=== PATIENT | female | born 1980 | race Caucasian/White ===

== ENCOUNTER 2016-10-21 10:02 | Inpatient (IN) | payer OTHER ==
[2016-10-20 11:38] VITALS: BMI 27.1
[~2016-10-21] VITALS: Ht 154.9 cm; Wt 63.4 kg
[2016-10-21] VITALS (21 sets, daily range): BP systolic 104–140; BP diastolic 56–82; PULSE 84–100; RESP 13–20; Ht 154.9 cm; Wt 63.4 kg
[~2016-10-21 10:02] MED LIST: CEFAZOLIN 1 GM/50 ML (PMX) 50 ML IVPB SCH; [UNRECOGNIZED DRUG - REMARK]
[2016-10-21] MEDS ORDERED: MIDAZOLAM 1 MG/ML 2 ML INJ ONE (10:23)
[2016-10-21] MEDS ORDERED: PROPOFOL 20 ML ONE (10:23)
[2016-10-21] MEDS ORDERED: FENTAnyl 50 MCG/ML VIAL ONE (10:23)
[2016-10-21] MEDS ORDERED: SUCCINYLCHOLINE CHLORIDE 100 MG/5 ML SYG IV ONE (10:23)
[2016-10-21] MEDS ORDERED: GABA300C16 PO (11:40)
[2016-10-21] MEDS ORDERED: DICL75TA2 PO (11:40)
[2016-10-21] MEDS ORDERED: TOPI25CA PO (11:40)
[2016-10-21] MEDS ORDERED: METF500T4 PO (11:40)
[2016-10-21] MEDS ORDERED: CYCL-319 PO (11:40)
[2016-10-21] MEDS ORDERED: AMIT10TA6 PO (11:40)
[2016-10-21] MEDS ORDERED: FAMOTIDINE 20 MG INJ ONE (12:25)
[2016-10-21] MEDS ORDERED: METOCLOPRAMIDE 10 MG INJ ONE (12:25)
[2016-10-21] MEDS ORDERED: GELATIN SIZE 100 SPONGE ONE (12:26)
[2016-10-21] MEDS ORDERED: ISOSULFAN BLUE 1% 5 ML INJ SC ONE (12:26)
[2016-10-21] MEDS ORDERED: POLYMYXIN/BACITRACIN 1L IRRIG ONE (12:27)
[2016-10-21] MEDS ORDERED: BUPIVACAINE 0.5%/EPI (SDV) 30 ML INJ ONE (12:27)
[2016-10-21] MEDS ORDERED: THROMBIN 5000 UNIT VIAL ONE (12:27)
[2016-10-21] MEDS ORDERED: CITRIC ACID/NA CITRATE 30 ML CUP ONE (12:28)
--- NOTE | 2016-10-21 12:37 | HPN ---
Date/Time of Note Date/Time of Note DATE: 10/21/16 TIME: 12:37 Interval H&P Admission Note Pt. seen H&P reviewed: No system changes CAROLANN VILLANUEVA MD Oct 21, 2016 12:37
[2016-10-21] MEDS ORDERED: ROCURONIUM 50 MG INJ ONE (13:07)
[2016-10-21] MEDS ORDERED: CEFAZOLIN 1 GM INJ ONE (13:07)
[2016-10-21] MEDS ORDERED: ONDANSETRON 4 MG INJ ONE ×2 (13:14→15:05)
[2016-10-21] MEDS ORDERED: PHENYLephrine (100 MCG/ML) 5ML SYG ONE (13:32)
[2016-10-21] MEDS ORDERED: GLYCOPYRROLATE 1 MG INJ ONE (14:35)
[2016-10-21] MEDS ORDERED: NEOSTIGMINE 3 MG/3 ML SYRINGE ONE (14:35)
[2016-10-21] MEDS ORDERED: MEPERIDINE 25 MG INJ IV PRN (15:00)
[2016-10-21] MEDS ORDERED: HYDROmorphONE (0.2 MG/ML) 10ML SYG IV PRN ×2 (15:00)
[2016-10-21] MEDS ORDERED: ONDANSETRON 4 MG INJ IV PRN (15:00)
[2016-10-21] MEDS ORDERED: DIPHENHYDRAMINE 50 MG INJ ONE (15:10)
[2016-10-21] MEDS ORDERED: PROCHLORPERAZINE 10 MG INJ ONE (15:14)
[2016-10-21] MEDS ORDERED: HYDROCODONE/APAP (10/325) TAB GTB PRN (15:30)
[2016-10-21] MEDS ORDERED: HYDROCODONE/APAP (10/325) TAB PO PRN ×3 (15:30)
[2016-10-21] MEDS ORDERED: morphine 2 MG INJ IV PRN ×2 (15:30)
--- NOTE | 2016-10-21 15:41 | RADRPT ---
PROCEDURE: Intraoperative imaging of the cervical spine with fluoroscopy. CLINICAL INDICATION: Neck pain. Intraoperative. TECHNIQUE: 8 images of the cervical spine were obtained in the operating room with an image intens ifier. No radiologist was in attendance. 16.3 seconds of fluoroscopy time was used. COMPARISON: No prior study is available for comparison. FINDINGS: Images demonstrate anterior fusion at C5-6. IMPRESSION: 1. Intraoperative imaging of the cervical spine. RPTAT: QQ .Jaren Han MD, MD Date Time Electronically viewed and signed by .Jaren Han MD, MD on 10/21/2016 15:41 .R/
[2016-10-21] MEDS ORDERED: PROCHLORPERAZINE 10 MG INJ IV PRN (16:00)
[2016-10-21] MEDS: DEXTROSE 5%-LR 1,000 ML IV SCH (17:01)
--- NOTE | 2016-10-21 17:10 | QN ---
Documentation Comment [id number] ROSIE SEWELL MD Oct 21, 2016 17:10
[2016-10-21] MEDS ORDERED: GLUCOSE GEL 15 GRAM TUBE PO PRN ×2 (17:30)
[2016-10-21] MEDS ORDERED: GLUCOSE GEL 15 GRAM TUBE BUCCAL PRN (17:30)
[2016-10-21] MEDS ORDERED: GLUCAGON 1 MG INJ IM PRN (17:30)
[2016-10-21] MEDS ORDERED: DEXTROSE 50% 50 ML SYRINGE IV PRN ×2 (17:30)
--- NOTE | 2016-10-21 17:47 | HP ---
DATE OF ADMISSION: 10/21/2016 HISTORY OF PRESENT ILLNESS: The patient has a known history of diabetes, hypertension is seen post- surgery. Patient has a history of C5 and C6 diskectomy and fusion. The patient has a neck collar a t the time of the dictation. Denies any numbness, weakness, tingling of both upper and lower extrem ities. Denies any chest pain. PAST MEDICAL HISTORY: Positive for depression, diabetes and as mentioned above. ALLERGY HISTORY: NEGATIVE. FAMILY HISTORY: Negative. SOCIAL HISTORY: Noncontributory. MEDICATION HISTORY: Listed as, 1. Metformin. 2. Celexa. 3. Vitamin D2 capsule. REVIEW OF SYSTEMS: Limited since the patient has a neck collar and postop. Denies any numbness, ti ngling, cough. Denies any nausea, vomiting. PHYSICAL EXAMINATION: GENERAL: The patient is awake, alert, slow, a little sleepy. VITAL SIGNS: Pulse 84, blood pressure 117/74. HEENT: Head is atraumatic, normocephalic. Pupils equal, reactive to light. NECK: The patient has a neck collar noted. LUNGS: Clear. CARDIOVASCULAR: S1, S2 normal. ABDOMEN: Soft, nontender. Bowel sounds present. No palpable mass or hepatosplenomegaly. No guard ing, rebound tenderness. EXTREMITIES: There is no cyanosis, clubbing, or edema. CENTRAL NERVOUS SYSTEM: The patient is awake, alert, moving both upper and lower extremities. LABORATORY DATA: Not available. IMPRESSION: 1. Status post C5-C6 diskectomy and fusion. 2. History of diabetes mellitus. 3. Incomplete database. PLAN: To continue sliding scale, gentle IV fluids, laboratory data, SCD to the legs. The patient w ill have pain medications, also the patient will have incentive spirometry. Orders were done. Dictated By: ROSIE SEWELL MD BS/NTS Conf#: [id number] DID#: [id number]
[2016-10-21] MEDS: INSULIN ASPART [NOVOLOG] 3 ML PEN SC SCH ×2 (17:55→22:18)
[2016-10-21] MEDS ORDERED: CEFAZOLIN 1 GM/50 ML (PMX) 50 ML IVPB SCH (22:00)
[2016-10-21] MEDS: CEFAZOLIN 1 GM/50 ML (PMX) 50 ML IVPB SCH (22:06)
[2016-10-22] MEDS ORDERED: ACCUCHECK XX SCH (02:00)
[2016-10-22] MEDS: DEXTROSE 5%-LR 1,000 ML IV SCH ×3 (02:37→13:44)
[2016-10-22 05:38] LABS: BASOPHILS % 0.2 % (0.0-2.0); EOSINOPHILS % 0.1 % (0.0-7.0); HEMOGLOBIN 11.6 g/dl (12.0-16.0); LYMPHOCYTES # 2.2 10^3/ul (0.8-2.9); LYMPHOCYTES % 22.9 % (15.0-51.0); MEAN CORPUSCULAR HEMOGLOBIN 28.8 pg (29.0-33.0); MEAN CORPUSCULAR HGB CONC 34.2 g/dl (32.0-37.0); MEAN CORPUSCULAR VOLUME 84.2 fl (82.0-101.0); MEAN PLATELET VOLUME 8.9 fl (7.4-10.4); MONOCYTE # 0.4 10^3/ul (0.3-0.9); MONOCYTES % 4.5 % (0.0-11.0); NEUTROPHIL # 6.8 10^3/ul (1.6-7.5); NEUTROPHILS % 72.3 % (39.0-77.0); PLATELET COUNT 210 10^3/UL (140-440); RED BLOOD COUNT 4.03 10^6/ul (4.20-5.40); RED CELL DISTRIBUTION WIDTH 14.3 % (11.5-14.5); UNCORRECTED WBC 9.5 10^3/ul (4.8-10.8); WHITE BLOOD COUNT 9.5 10^3/ul (4.8-10.8)
[2016-10-22 05:41] VITALS: BP 124/73; PULSE 85; RESP 18
[2016-10-22] MEDS: CEFAZOLIN 1 GM/50 ML (PMX) 50 ML IVPB SCH (06:06)
[2016-10-22 06:07] LABS: CONDITION 1
[2016-10-22 06:13] LABS: ALBUMIN 3.9 g/dl (3.3-4.9)
[2016-10-22 06:14] LABS: POTASSIUM 3.8 mmol/L (3.5-5.1)
[2016-10-22 06:16] LABS: ALBUMIN/GLOBULIN RATIO 1.18; BILIRUBIN,INDIRECT 0.3 mg/dl (0-1.1); BILIRUBIN,TOTAL 0.3 mg/dl (0.2-1.3); CREATININE 0.38 mg/dl (0.44-1.00); TOTAL PROTEIN 7.2 g/dl (6.1-8.1)
[2016-10-22 06:17] LABS: CALCIUM 8.9 mg/dl (8.4-10.2)
[2016-10-22 07:15] VITALS: BP 124/71; RESP 18
[2016-10-22] MEDS: INSULIN ASPART [NOVOLOG] 3 ML PEN SC SCH ×2 (07:50→11:40)
--- NOTE | 2016-10-22 08:14 | OPR ---
DATE OF OPERATION: SURGEON: Carolann Lucero MD [employer]: SEVERINO Erwin ANESTHESIA: General. PREOPERATIVE DIAGNOSIS: C5-C6 disk herniation with radiculopathy. POSTOPERATIVE DIAGNOSIS: C5 C6 disk herniation with radiculopathy. PROCEDURE PERFORMED: 1. C5-C6 anterior microdiskectomy. 2. Anterior interbody fusion, C5-C6. 3. Segmental fixation using LDR 6-mm cage with locking blade plate. 4. Intraoperative fluoroscopy x-ray. 5. Use of the operating microscope for decompression of the spinal canal and foramina. 6. Partial corpectomy C5 inferior and C6 superior vertebral body endplates. 7. Intraoperative spinal cord monitoring. ESTIMATED BLOOD LOSS: 100 mL. COMPLICATIONS: None. INDICATIONS: The patient is a 36-year-old female with longstanding complaints of pain in the neck a nd the arms, worse on the left than the right, with persisting and increasing numbness and weakness. MRI scan has shown a 5 mm herniation C5-C6 with endplate osteophytes causing stenosis of the canal and the foramina. The patient has been treated with medications, physical therapy and injections. In light of persistent pain, the patient has elected to proceed with surgery. The risks and compli cations were reviewed with the patient. The complications are not limited to infection, stiffness i n the neck, adjacent level disease, nerve damage, possible effect on swallowing and hoarseness in th e voice and persisting pain and stiffness. The patient agrees to proceed with surgery. DESCRIPTION OF PROCEDURE: The patient was taken to the operating room and general anesthetic given with intubation, 2 grams of Kefzol given for prophylaxis. The patient was carefully positioned on [facility] operating room table with padding of all extremities. The arms were tucked in place and head wa s well supported. The neck was prepped and draped in the usual sterile manner. C-arm draped and br ought over the cervical spine. The C5-C6 level was clearly visualized on the x-ray. Incision was m abhijit on the left side of the neck with blunt dissection, developing the plane between the strap and [facility] sternocleidomastoid muscles. The prevertebral space was entered. The anterior longitudinal liga ment was identified and with dissection with peanuts, the disk spaces identified. A needle was plac ed and intraoperative x-ray confirmed the C5-C6 location. The Cloward retractors were utilized with the blades deep to the paraspinal muscles while protecting adjacent soft-tissue structures. The rey roscope was draped and brought into the operative field. The C5-C6 level was approached and a compl ete diskectomy was performed. Endplates were decorticated. The foramina were identified. Endplate osteophytes were removed with a partial vertebrectomy and inferior C5 and superior C6 endplates car ried out. A trial with a 6 mm LDR cage was carried out with good fit and x-ray visualization fillin g the intervertebral space and depth. The disk was packed with bone allograft and placed 2 plates ad vanced satisfactorily into the C5 and C6 vertebral bodies for fixation. X-ray was satisfactory. Th e fixation was stable. The wound was irrigated with antibiotic solution. Hemostasis was ascertaine d using cautery. The platysma layer was closed with 2-0 Vicryl suture and skin was closed with a Mo nocryl 3-0 suture. Steri-Strips applied with a soft dressing and an Chandler collar neck brace applie d. Anesthetic reversed. The patient was taken to recovery in stable condition. Dictated By: CAROLANN ELAM/GIANA Conf#: [id number] DID#: [id number]
--- NOTE | 2016-10-22 11:25 | PN ---
Date/Time of Note Date/Time of Note DATE: 10/22/16 TIME: 11:23 Assessment/Plan VTE Prophylaxis VTE Prophylaxis Intervention: SCD's Lines/Catheters IV Catheter Type (from Nrsg): Saline Lock Assessment/Plan Assessment/Plan 1.S/p status post C5-C6 diskectomy and fusion. 2. History of diabetes mellitus. 3. Incomplete database. Plan: pain controlled possibel d/c home today Subjective 24 Hr Interval Summary Free Text/Dictation s/p . C5-C6 anterior microdiskectomy. Anterior interbody fusion, C5-C6., pain controlled Exam/Review of Systems Vital Signs Vitals Vital Signs Date Time Temp Pulse Resp B/P Pulse Ox O2 Delivery O2 Flow Rate FiO2 10/22/16 07:15 98.2 95 18 124/71 96 10/22/16 05:41 Room Air Intake and Output 10/21/16 10/21/16 10/22/16 15:00 23:00 07:00 Intake Total 1500 ml 1550 ml Output Total 200 ml 1100 ml Balance 1300 ml 450 ml Exam HEENT: Head is atraumatic, normocephalic. Pupils equal, reactive to light. NECK: The patient has a neck collar noted. LUNGS: Clear. CARDIOVASCULAR: S1, S2 normal. ABDOMEN: Soft, nontender. Bowel sounds present. No palpable mass or hepatosplenomegaly. No guarding, rebound tenderness. EXTREMITIES: There is no cyanosis, clubbing, or edema. CENTRAL NERVOUS SYSTEM: The patient is awake, alert, moving both upper and lower extremities. Results Result Diagram: 10/22/16 0435 10/22/16 0435 Results 24 hrs Laboratory Tests Test 10/21/16 15:20 10/21/16 17:49 10/21/16 20:09 10/22/16 04:35 Bedside Glucose 109 133 138 Alanine Aminotransferase (ALT/SGPT) 83 H Albumin 3.9 Albumin/Globulin Ratio 1.18 Alkaline Phosphatase 80 Anion Gap 16 Aspartate Amino Transf (AST/SGOT) 97 H Basophils # 0.0 Basophils % 0.2 Blood Morphology Comment Blood Urea Nitrogen 7 Calcium Level 8.9 Carbon Dioxide Level 27 Chloride Level 101 Creatinine 0.38 L Direct Bilirubin 0.00 Eosinophils # 0.0 Eosinophils % 0.1 Globulin 3.30 H Glucose Level 118 Hematocrit 34.0 L Hemoglobin 11.6 L Indirect Bilirubin 0.3 Lymphocytes # 2.2 Lymphocytes % 22.9 Mean Corpuscular Hemoglobin 28.8 L Mean Corpuscular Hemoglobin Concent 34.2 Mean Corpuscular Volume 84.2 Mean Platelet Volume 8.9 Monocytes # 0.4 Monocytes % 4.5 Neutrophils # 6.8 Neutrophils % 72.3 Nucleated Red Blood Cells # 0.0 Nucleated Red Blood Cells % 0.0 Platelet Count 210 Potassium Level 3.8 Red Blood Count 4.03 L Red Cell Distribution Width 14.3 Sodium Level 140 Total Bilirubin 0.3 Total Protein 7.2 White Blood Count 9.5 Test 10/22/16 08:09 Bedside Glucose 140 Medications Medications Current Medications Dextrose/Lactated Ringer's (D5-Lr) 1,000 ml @ 90 mls/hr Q11H7M IV Last administered on 10/22/16 04:27; Admin Dose 90 MLS/HR; Start 10/21/16 at 15:30 Morphine Sulfate (morphine) 2 mg Q2H PRN IV PAIN Last administered on 18:31; Admin Dose 2 MG; Start 10/21/16 at 15:30 Acetaminophen/ Hydrocodone Bitart ([place] (10/325)) 1 tab Q4H PRN PO PAIN; Start 10/21/16 at 15:30 Acetaminophen/ Hydrocodone Bitart ([place] (10/325)) 2 tab Q4H PRN GTB PAIN LEVEL 7-10 Last administered on 10/22/16 04:29; Admin Dose 2 TAB; Start at 15:30 Diagnostic Test (Pha) (Accucheck) 1 ea 02 XX ; Start 10/22/16 at 02:00 Miscellaneous Information 1 ea NOTE XX ; Start 10/21/16 at 17:30 Glucose (Glutose) 15 gm Q15M PRN PO DECREASED GLUCOSE; Start 10/21/16 at 17:30 Glucose (Glutose) 22.5 gm Q15M PRN PO DECREASED GLUCOSE; Start 10/21/16 at 17: 30 Dextrose (D50w Syringe) 25 ml Q15M PRN IV DECREASED GLUCOSE; Start 10/21/16 at 17:30 Dextrose (D50w Syringe) 50 ml Q15M PRN IV DECREASED GLUCOSE; Start 10/21/16 at 17:30 Glucagon (Glucagen) 1 mg Q15M PRN IM DECREASED GLUCOSE; Start 10/21/16 at 17:30 Glucose (Glutose) 15 gm Q15M PRN BUCCAL DECREASED GLUCOSE; Start 10/21/16 at 17 :30 LAITH ANN MD Oct 22, 2016 11:25
--- NOTE | 2016-10-22 11:27 | PDOCDIS ---
Discharge Instructions CONDITION Patient Condition: Good HOME CARE INSTRUCTIONS: Diet Instructions: SOFT DIETSpecial Diet: regular diet ACTIVITY: Activity Restrictions: Slowly Increase Activity Avoid heavy lifting Do not operate Machinery Avoid Heavy Housework Bathing Restrictions: Tub Bath FOLLOW UP/APPOINTMENTS Appointments follow up with her own PMD through HMO Insurance in 1-2 week,. Follow up with in 2-3 weeks LAITH ANN MD Oct 22, 2016 11:27
[2016-10-22] MEDS ORDERED: HYDR-906 PO (11:29)
[2016-10-22] MEDS ORDERED: METO10TA92 PO (12:48)
[2016-10-22] MEDS ORDERED: ONDANSETRON 4 MG INJ IV STA (12:51)
[2016-10-22] MEDS ORDERED: morphine 2 MG INJ IV PRN (13:30)
--- NOTE | 2016-10-23 16:45 | DS ---
DATE OF ADMISSION: 10/21/2016 DATE OF DISCHARGE: 10/22/2016 FINAL DISCHARGE DIAGNOSES 1. Status post C5-C6 diskectomy and fusion for cervical spine stenosis. 2. History of diabetes mellitus. 3. Intractable pain. CONSULTATIONS DONE DURING THIS HOSPITALIZATION: Orthopedic surgery consult, Dr. Lucero. PROCEDURES PERFORMED DURING THIS HOSPITALIZATION: The patient underwent C5-C6 diskectomy and fusion surgery by Dr. Lucero. HOSPITAL COURSE: This is a 36-year-old female with a past medical history of diabetes mellitus who was brought in by Dr. Lucero for surgery. She underwent a C5 to C6 diskectomy with fusion surger y. Postoperatively, she was hemodynamically stable, but due the surgery and pain, she gets admitted for overnight. She gets admitted to the med/surg floor, followed up by Dr. Lucero. She was hem odynamically stable. She was complaining of nausea, vomiting, so she was given a prescription of Re glan on discharge. After getting stable vital signs, she is getting discharged to home. DISPOSITION: To home. DISCHARGE CONDITION: Stable and improved compared to admission. DISCHARGE ACTIVITIES: As tolerated, slowly resume to the normal baseline activity. DISCHARGE DIET: Regular diet. DISCHARGE MEDICATIONS: As per medical reconciliation. DISCHARGE FOLLOWUP AND INSTRUCTIONS 1. The patient is to follow with her own primary care doctor in 1 to 2 weeks after discharge. 2. The patient is to follow up with orthopedic surgery, Dr. Lucero, as outpatient in 2 to 3 week s after discharge. Dictated By: LAITH ANN MD, KP/GIANA Conf#: [id number] DID#: [id number]
== END 2016-10-22 15:56 | disposition home or self-care (01) | DRG 473 ==
LOC: REC 10:02 → MS1 16:30
PROVIDERS: ADMIT Specialist; ATTEND Specialist
PROC: 0RB30ZZ Excision of Cervical Vertebral Disc, Open Approach (ICD-10-PCS; 2016-10-21)
PROC: 0RG10A0 Fusion of Cervical Vertebral Joint with Interbody Fusion Device, Anterior Approach, Anterior Column, Open Approach (ICD-10-PCS; principal; 2016-10-21 12:30)
DX: M50.122 Cervical disc disorder at C5-C6 level with radiculopathy (principal); I10 Essential (primary) hypertension; M54.2 Cervicalgia; E11.9 Type 2 diabetes mellitus without complications; G89.18 Other acute postprocedural pain
CPT/HCPCS: 72050; 80053; 82962; 85025; 88304; 97162; C1713; J0330; J0690; J0780; J1200; J1815; J2175; J2250; J2270; J2370; J2405; J2710; J2765; J3010; J7121; Q9968